=== PATIENT | female | born 1955 | race Caucasian/White ===

== ENCOUNTER 2017-11-26 11:17 | Emergency (ER) | payer BC ==
[~2017-11-26] VITALS: Ht 167.6 cm; Wt 77.1 kg
[2017-11-26 14:34] VITALS: BP 149/90
[2017-11-26] MEDS ORDERED: IBUPROFEN 800 MG TAB PO ONE (15:30)
[2017-11-26] MEDS ORDERED: cefTRIAXone SOD 1,000 MG VL IM ONE (15:30)
== END 2017-11-26 16:20 | disposition home or self-care (01) ==
LOC: ER 11:17
DX: S61.452A Open bite of left hand, initial encounter (principal); Z90.89 Acquired absence of other organs; W55.01XA Bitten by cat, initial encounter; Y93.89 Activity, other specified; Y99.8 Other external cause status; Y92.89 Other specified places as the place of occurrence of the external cause
CPT/HCPCS: 73130; 96372; 99284; J0696